=== PATIENT | female | born 1990 | race African-American/Black ===

== ENCOUNTER 2016-05-04 07:11 | Emergency (ER) | payer OTHER ==
[~2016-05-04] VITALS: Ht 167.6 cm; Wt 63.6 kg
[2016-05-04 07:14] VITALS: BP 140/91; PULSE 92; RESP 16; O2SAT 99
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
--- NOTE | 2016-05-04 08:55 | DRSVH ---
PROCEDURE: X-RAY RIGHT HUMERUS, MINIMUM TWO VIEWS ([id number]) INDICATIONS: pain, limited range of motion TECHNIQUE: 2 views of the humerus were acquired. COMPARISON: None. FINDINGS: Bones: Possible cortical step off involving the inferior margin of the scapula which may be related t o a normal bony variant. Exam otherwise demonstrating no definite displaced fractures.. No suspicio us bony lesions. Soft tissues: No suspicious soft tissue calcifications. IMPRESSION: Cortical step-off possibly present involving the inferior margin of the scapula laterally which may represent a normal bony variant but fracture cannot entirely be excluded. If indicated sc apular series could be performed. Dictated by: Robin GRIMM Interpreted: Christiano Kiran MD on 05/04/2016 at 8:53 Transcribed by: JOSEPH on 05/04/2016 at 8:55 Approved by: Steven Kiran M.D. on 05/04/2016 at 9:28
--- NOTE | 2016-05-04 09:23 | DRSVH ---
PROCEDURE: X-RAY RIGHT SCAPULA, TWO VIEWS ([id number]) INDICATIONS: pain TECHNIQUE: 3 views of the scapula were acquired. COMPARISON: Right humerus 05/04/2016 FINDINGS: Bones: No fractures or dislocations. The questionable cortical offset at the inferior tip of the sca pula on prior exam is not confirmed. No suspicious bony lesions. Visualized ribs appear intact. Soft tissues: Overlying soft tissues appear normal. IMPRESSION: 1. No scapular fracture is identified. 2. No shoulder separation or dislocation. Dictated by: Steven Kiran M.D. on 05/04/2016 at 9:19 Approved by: Steven Kiran M.D. on 05/04/2016 at 9:22
--- NOTE | 2016-05-04 09:24 | DRSVH ---
PROCEDURE: X-RAY CHEST ONE VIEW ([id number]) INDICATIONS: right posterior chest wall pain TECHNIQUE: One view of the chest was acquired. COMPARISON: 08/18/2013 FINDINGS: Surgical changes and devices: None. Lungs and pleura: No pleural effusions or pneumothorax. Lungs are clear. Mediastinum: Mediastinal contours appear normal. Heart size is normal. Bones and chest wall: No suspicious bony lesions. Overlying soft tissues appear unremarkable. IMPRESSION: Normal chest Dictated by: Steven Kiran M.D. on 05/04/2016 at 9:22 Approved by: Steven Kiran M.D. on 05/04/2016 at 9:23
[2016-05-04] MEDS ORDERED: IBUP800T28 PO (09:37)
== END 2016-05-04 09:44 | disposition home or self-care (01) ==
LOC: SED 07:11
DX: S49.91XA Unspecified injury of right shoulder and upper arm, initial encounter (principal); W22.8XXA Striking against or struck by other objects, initial encounter; Y93.89 Activity, other specified; Y92.9 Unspecified place or not applicable; Y99.8 Other external cause status; F17.200 Nicotine dependence, unspecified, uncomplicated